=== PATIENT | male | born 1995 | race Caucasian/White ===

== ENCOUNTER 2017-02-18 20:26 | Emergency (ER) | payer OTHER ==
[~2017-02-18] VITALS: Ht 180.3 cm; Wt 63.5 kg
[2017-02-18 20:31] VITALS: BP 115/67
[2017-02-18 21:30] VITALS: BP 115/67
--- NOTE | 2017-02-18 21:30 | NUR ---
PATIENT PRESENTS TO ED WITH C/O ABD PAIN X 1 WEEK PT DENIES N/V/D; SKIN IS PINK/WARM/DRY; AAOX4 WITH EVEN AND STEADY GAIT; LUNGS CLEAR BL; HR EVEN AND REGULAR; PT DENIES ANY FEVER, CP, SOB, OR COUGH AT THIS TIME; PATIENT STATES PAIN OF 6/10 AT THIS TIME; VSS; PATIENT POSITIONED FOR COMFORT; HOB ELEVATED; BEDRAILS UP X2; BED DOWN. ER MD MADE AWARE OF PT STATUS.
--- NOTE | 2017-02-18 21:31 | NUR ---
Urszula umanzor in ED - 02/18/17 at 2144 by TONO PT AMBULATED TO ER [id number]
--- NOTE | 2017-02-18 21:31 | NUR ---
PT AMBULATED TO ER BED 08
[2017-02-18 21:53] LABS: HEMATOCRIT 46.8 % (36-52); HEMOGLOBIN 15.5 g/dL (12.0-18.0); MEAN CORPUSCULAR HEMOGLOBIN 30 pg (27-31); MEAN CORPUSCULAR HGB CONC 33 g/dL (33-37); MEAN CORPUSCULAR VOLUME 89 fL (80-94); PLATELET COUNT (AUTO) 244 K/uL (140-450); RED BLOOD CELL COUNT(AUTO) 5.24 MIL/uL (4.20-6.10); RED CELL DISTRIBUTION WIDTH 12.3 % (11.6-13.7); WHITE BLOOD COUNT (AUTO) 10.3 K/uL (4.8-10.8)
[2017-02-18 22:02] LABS: ANION GAP 9.8 (8-16); CARBON DIOXIDE 32.7 mmol/L (21-32); POTASSIUM 4.5 mmol/L (3.5-5.1)
[2017-02-18 22:07] LABS: ALBUMIN 4.9 g/dL (3.4-5.0); TOTAL BILIRUBIN 0.9 mg/dL (0.0-1.0)
[2017-02-18 22:23] LABS: LYMPHOCYTES % (MANUAL) 16 % (20-46); MONOCYTES % (MANUAL) 6 % (5-12)
--- NOTE | 2017-02-18 22:41 | NUR ---
PT TO CT VIA W/C.
[2017-02-18] MEDS ORDERED: DICYCLOMINE 20 MG/2 ML VIAL IM ONE (23:30)
[2017-02-18] MEDS ORDERED: DICYCLOMINE HCL LIQUID 20 MG, ALUMINUM HYD/MAG/SIMETHICONE 30 ML, LIDOCAINE VISCOUS 2% ... PO ONE ×3 (23:30)
--- NOTE | 2017-02-19 00:30 | NUR ---
Patient discharged with v/s stable. Written and verbal after care instructions given and explained. Patient alert, oriented and verbalized understanding of instructions. Ambulatory with steady gait. All questions addressed prior to discharge. ID band removed. Patient advised to follow up with PMD. Rx of BENTYL given. Patient educated on indication of medication including possible reaction and side effects. Opportunity to ask questions provided and answered.
== END 2017-02-19 00:30 | disposition home or self-care (01) ==
LOC: MED 20:26
DX: R10.31 Right lower quadrant pain (principal); R11.2 Nausea with vomiting, unspecified; R19.7 Diarrhea, unspecified
CPT/HCPCS: 36415; 74176; 80053; 83690; 85025; 96372; 99285; J0500